=== PATIENT | female | born 1945 | race Caucasian/White ===

== ENCOUNTER 2020-05-29 13:06 | Outpatient (CLI) | payer MEDICARE, OTHER, SELFPAY ==
--- NOTE | 2020-05-29 13:13 | MM_ITS ---
WS: [id number] BILATERAL SCREENING DIGITAL MAMMOGRAM WITH CAD HISTORY: SCREENING COMPARISON: 12/16/2016 and 12/14/2015 Bilateral CC and MLO views submitted. Computer aided detection analyzed. Breast composition: There are scattered areas of fibroglandular density. No suspicious masses, microc alcifications or architectural distortion. Benign calcifications in each breast. MM/[id number] IMPRESSION: BI-RADS: 2-Benign FOLLOW UP: 1 Year Follow-up
== END 2020-05-29 13:07 | disposition home or self-care (01) ==
LOC: RADSHAW 13:12
PROVIDERS: PCP Family Medicine; Visit Provider Family Medicine
DX: Z12.31 Encounter for screening mammogram for malignant neoplasm of breast (principal)
CPT/HCPCS: 77067

== ENCOUNTER 2021-05-31 10:37 | Outpatient (CLI) | payer MEDICARE, BC, SELFPAY ==
--- NOTE | 2021-05-31 10:47 | MM_ITS ---
WS: [id number] BILATERAL DIGITAL SCREENING MAMMOGRAPHY WITH CAD CLINICAL INFORMATION: SCREENING HISTORY: Screening mammogram. No current complaints. COMPARISON: May 29, 2020 TECHNIQUE: Bilateral CC and MLO views. FINDINGS: Scattered fibroglandular densities bilaterally. No suspicious focal mass, asymmetry, calcifications, or architectural distortion. No evidence of malignancy. Vascular calcification. Punctate calcificatio n. MM/[id number] IMPRESSION: BI-RADS: 2-Benign FOLLOW UP: 1 Year Follow-up Recommend return to annual screening mammography.
== END 2021-05-31 10:38 | disposition home or self-care (01) ==
LOC: RADSHAW 10:44
PROVIDERS: PCP Family Medicine; Visit Provider Family Medicine
DX: Z12.31 Encounter for screening mammogram for malignant neoplasm of breast (principal)
CPT/HCPCS: 77067

== ENCOUNTER 2022-03-21 14:31 | Outpatient (CLI) | payer MEDICARE, BC, SELFPAY ==
--- NOTE | 2022-03-21 14:47 | XR_ITS ---
WS: [id number] SCREENING DEXA SCAN Focus IP CLINICAL INFORMATION: POSTMENOPAUSAL COMPARISON: 2019 FINDINGS: The L1-L4 bone mineral density measures 0.961 g/cm2. This corresponds to a T score score of -1.8 and Z score of -1.2. Left femoral neck bone mineral density measures 0.814 (g/cm2). This corresponds to a T score of -1.5 (no units) and Z score of -0.6 (no units). LEFT forearm bone mineral density measures 0.763. This corresponds to a T score -1.3of and Z score of 1.0. XR/XR DEXA axial skeleton* [id number] IMPRESSION: Osteopenia lumbar spine. Osteopenia LEFT femoral neck and LEFT forearm. Patient's FRAX calculated 10 year probability for major osteoporotic fracture is 11.6 % and osteoporotic hip fracture is 2.8%.
== END 2022-03-21 14:32 | disposition home or self-care (01) ==
LOC: RAD 14:34
PROVIDERS: PCP Family Medicine; Visit Provider Family Medicine
DX: Z78.0 Asymptomatic menopausal state (principal); M85.89 Other specified disorders of bone density and structure, multiple sites
CPT/HCPCS: 77080

== ENCOUNTER 2022-04-05 09:14 | Outpatient (CLI) | payer MEDICARE, BC, SELFPAY ==
--- NOTE | 2022-04-05 | XR_ITS ---
WS: [id number] Lumbar spine, AP, L5-S1 spot, lateral views in flexion, extension and neutral position, 04/05/2022 Clinical Data: CHRONIC LOW BACK PAIN Comparison: Lumbar spine, 07/17/2006. Findings: No compression fractures or subluxation is seen. There is degenerative disc narrowing at L4-L5 and L5 -S1. There is anterior osteophyte formation from T10 through L1. There are small osteophytes from L3 through L5. The transverse processes and SI joints are normal. On flexion and extension there is limitation of motion but no subluxation. There is calcification in the wall of the abdominal aorta but no aneurysm. There is a right hip arthroplasty XR/XR lumbar spine min 4V [id number] Impression: 1. Degenerative disc narrowing at L4-5 and L5-S1. 2. Anterior osteophyte formation of the lower thoracic and most of the lumbar s pine. 3. Negative for subluxation but there is limitation of motion on flexion and ex tension.
--- NOTE | 2022-04-05 | XR_ITS ---
WS: [id number] Right hand, 3 views, 04/05/2022 Clinical Data: ARTHRITIS OF FINGER OF BOTH HANDS Comparison: None. Findings: No fractures or dislocations are seen. The soft tissues are unremarkable. The joint space s are normal No periarticular demineralization or calcifications are seen. There are calcifications adjacent to th e right ulnar styloid which may be from old trauma. XR/XR hand RT min 3V* [id number] Impression: Negative right hand.
--- NOTE | 2022-04-05 | XR_ITS ---
WS: [id number] Left hand, 3 views, 04/05/2022 Clinical Data: ARTHRITIS OF FINGER OF BOTH HANDS Comparison: None. Findings: No fractures or dislocations are seen. The soft tissues are unremarkable. The joint spaces are normal No periarticular demineralization or calcifications are seen. XR/XR hand LT min 3V* [id number] Impression: Negative left hand.
== END 2022-04-05 09:15 | disposition home or self-care (01) ==
LOC: RADOUTREAD 04-06 09:17
PROVIDERS: PCP Family Medicine; Visit Provider Family Medicine
DX: M19.041 Primary osteoarthritis, right hand (principal); M19.042 Primary osteoarthritis, left hand; M54.50 Low back pain, unspecified
CPT/HCPCS: 72110; 73130